=== PATIENT | female | born 1990 | race Caucasian/White ===

== ENCOUNTER 2017-11-01 08:36 | Emergency (ER) | payer OTHER ==
[2017-11-01 09:00] VITALS: BP 106/76; PULSE 122; RESP 18; TEMP 101
--- NOTE | 2017-11-01 09:27 | ED ---
General Adult HPI - General Chief complaint: ENT Stated complaint: SORE THROAT Time Seen by Provider: 11/01/17 09:06 Source: patient, RN notes reviewed Mode of arrival: ambulatory Limitations: no limitations - History of Present Illness Initial comments: 27-year-old female presents to the emergency department with a chief complaint of sore throat. Patient states that his throat is been hurting. She states that she has a history of strep throat in the past. She states that there has been a sore throat she states it does hurt to swallow. She admits to some nausea. She denies any productive cough. She was concerned due to her continued symptoms so she thought that she should be seen.Patient denies any recent shortness of breath, chest pain, back pain, abdominal pain, nausea vomiting, numbness or tingling, dysuria or hematuria, constipation or diarrhea, headaches or visual changes, or any other current symptoms. - Related Data Home Medications Medication Instructions Recorded Confirmed Ibuprofen 200 mg PO Q6H PRN 11/01/17 11/01/17 Previous Rx's Medication Instructions Recorded Amoxicillin 500 mg PO Q8H #21 capsule 11/01/17 Ibuprofen [Motrin] 600 mg PO Q6HR PRN #20 tab 11/01/17 Allergies Allergy/AdvReac Type Severity Reaction Status Date / Time iodine Allergy Unknown Verified 11/01/17 09:09 Childhood povidone-iodine Allergy Unknown Verified 11/01/17 09:09 [From Betadine] Childhood soap [From Betadine] Allergy Unknown Verified 11/01/17 09:09 Childhood Review of Systems ROS Statement: Those systems with pertinent positive or pertinent negative responses have been documented in the HPI. ROS Other: All systems not noted in ROS Statement are negative. Past Medical History Past Medical History: No Reported History History of Any Multi-Drug Resistant Organisms: None Reported Past Surgical History: Section Past Psychological History: No Psychological Hx Reported Smoking Status: Never smoker Past Alcohol Use History: Rare Past Drug Use History: None Reported General Exam - General Exam Comments Initial Comments: General exam: Alert, active, comfortable in no apparent distress Head: Normocephalic Eyes: Normal reaction of pupils, equal size, normal range of extraocular motion Ears: normal external ear canals, pink tympanic membranes with normal cone of light Nose: clear with pink turbinates Throat: Erythema with exudates with enlarged tonsils Neck: no masses, no nuchal rigidity Chest: no chest wall deformity Lungs: equal air entry with no crackles or wheeze CVS: S1 and S2 normal with no audible mumurs, regular rhythm Abdomen: no hepatosplenomegaly, normal bowel sounds, no guarding or rigidity Spine: no scoliosis or deformity Skin: no rashes Neurological: No focal deficits, tone is normal in all 4 extremities Limitations: no limitations Course Vital Signs 11/01/17 08:57 Temperature 101.0 F H Pulse Rate 122 H Respiratory 18 Rate Blood Pressure 106/76 O2 Sat by Pulse 97 Oximetry Medical Decision Making - Medical Decision Making 27-year-old female presents for what appears to be a pharyngitis. At this time we will start the patient on antibiotics. We discussed follow-up we did discuss return parameters. All questions have been answered. This time patient will be discharged home. Disposition Clinical Impression: Acute pharyngitis Disposition: HOME SELF-CARE Condition: Stable Instructions: Pharyngitis (ED) Additional Instructions: Please use medication as discussed. Please follow up with family doctor if symptoms have not improved over the next two days. Please return to the emergency room if your symptoms increase or worsen or for any other concerns. Prescriptions: Amoxicillin 500 mg PO Q8H #21 capsule Ibuprofen [Motrin] 600 mg PO Q6HR PRN #20 tab PRN Reason: Pain Referrals: Edie Jameson MD [REFERRING] - 1-2 days Time of Disposition: 09:26
== END 2017-11-01 09:28 | disposition home or self-care (01) ==
LOC: EC 08:36
DX: J02.9 Acute pharyngitis, unspecified (principal); R11.0 Nausea; Z88.8 Allergy status to other drugs, medicaments and biological substances; Z91.048 Other nonmedicinal substance allergy status
CPT/HCPCS: 99282

== ENCOUNTER 2018-01-16 16:32 | Emergency (ER) | payer OTHER ==
[2018-01-16 16:59] VITALS: BP 117/73; PULSE 100; RESP 18; TEMP 97.6
--- NOTE | 2018-01-16 17:27 | ED ---
ENT HPI - General Chief complaint: ENT Stated complaint: Sore Throat Time Seen by Provider: 01/16/18 17:18 Source: patient, RN notes reviewed Mode of arrival: ambulatory Limitations: no limitations - History of Present Illness Initial comments: This is a 27-year-old female who presents to the emergency department with chief complaint of sore throat. Patient states that she developed a sore throat yesterday. She also admits to runny nose and a "tickly cough" at night. Patient states that her 2 sons and boyfriend were recently diagnosed with strep throat. Denies any fevers or chills. Denies abdominal pain, nausea or vomiting, diarrhea or constipation. - Related Data Home Medications Medication Instructions Recorded Confirmed Ibuprofen 200 mg PO Q6H PRN 11/01/17 11/01/17 Previous Rx's Medication Instructions Recorded Amoxicillin 500 mg PO Q8H #21 capsule 11/01/17 Ibuprofen [Motrin] 600 mg PO Q6HR PRN #20 tab 11/01/17 Allergies Allergy/AdvReac Type Severity Reaction Status Date / Time iodine Allergy Unknown Verified 01/16/18 16:59 Childhood povidone-iodine Allergy Unknown Verified 01/16/18 16:59 [From Betadine] Childhood soap [From Betadine] Allergy Unknown Verified 01/16/18 16:59 Childhood Review of Systems ROS Statement: Those systems with pertinent positive or pertinent negative responses have been documented in the HPI. ROS Other: All systems not noted in ROS Statement are negative. Past Medical History Past Medical History: No Reported History History of Any Multi-Drug Resistant Organisms: None Reported Past Surgical History: Section Past Psychological History: No Psychological Hx Reported Smoking Status: Never smoker Past Alcohol Use History: Rare Past Drug Use History: None Reported General Exam - General Exam Comments Initial Comments: General: Awake and alert, well-developed; in no apparent distress. HEENT: Head atraumatic, normocephalic. Pupils are equal, round and reactive to light. Extraocular movements intact. Oropharynx moist with mild erythema. Cobblestoning noted posterior oropharynx. Unable to visualize bilateral TMs due to cerumen impaction. Neck: Supple. Normal ROM. Cardiovascular: Regular rate and rhythm. No murmurs, rubs or gallops. Chest symmetrical. Respiratory: Lungs clear to auscultation bilaterally. No wheezes, rales or rhonchi. Normal respiratory effort with no use of accessory muscles. Musculoskeletal: Normal ROM, no tenderness bilateral upper and lower extremities. Ambulating normally. Skin: [place], warm and dry without rashes or lesions. Neurological: Alert and oriented x3. CN II-XII grossly intact. Speech is fluent and answers are appropriate. No focal neuro deficits. Psychiatric: Normal mood and affect. No overt signs of depression or anxiety noted. Limitations: no limitations Course Vital Signs 01/16/18 16:58 Temperature 97.6 F Pulse Rate 100 Respiratory 18 Rate Blood Pressure 117/73 O2 Sat by Pulse 98 Oximetry Medical Decision Making - Medical Decision Making This is a 27-year-old female who presents to the emergency department with chief complaint of sore throat. Oropharynx is mildly erythematous with cobblestoning noted. No tonsillar enlargement or exudates. Patient's boyfriend and son have recently been diagnosed with strep throat. Rapid strep was negative. Patient was informed that this is sent for culture and she will be contacted if it becomes positive. Patient likely suffering from a viral upper respiratory infection. Recommended symptomatic treatment. Vital signs are stable and patient is in no acute distress. She'll be discharged home at this time. She is in agreement with plan and voices understanding. All questions answered. - Lab Data Lab Results 01/16/18 Range/Units 17:16 Group A Strep Rapid Negative (Negative) Disposition Clinical Impression: Upper respiratory infection Disposition: HOME SELF-CARE Condition: Good Instructions: Upper Respiratory Infection (ED), Pharyngitis (ED) Additional Instructions: Please follow up with primary care provider within 1-2 days. Return to emergency department if symptoms should worsen or any concerns arise. Is patient prescribed a controlled substance at d/c from ED?: No Referrals: None,Stated [Primary Care Provider] - 1-2 days Time of Disposition: 17:53
== END 2018-01-16 17:57 | disposition home or self-care (01) ==
LOC: EC 16:32
DX: J06.9 Acute upper respiratory infection, unspecified (principal); Z91.048 Other nonmedicinal substance allergy status; Z88.3 Allergy status to other anti-infective agents
CPT/HCPCS: 87081; 87430; 99283

== ENCOUNTER 2018-02-10 03:29 | Emergency (ER) | payer OTHER ==
[2018-02-10 03:39] VITALS: RESP 20; TEMP 100.4
[2018-02-10] MEDS ORDERED: ACETAMINOPHEN TAB 500 MG TAB PO STA (03:48)
[2018-02-10] MEDS ORDERED: KETOROLAC 30 MG/ML 1 ML VIAL IVP STA (03:49)
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
[2018-02-10 04:16] LABS: Basophils # (A) 0.1 k/uL (0-0.2); Basophils % (A) 1 %; Eosinophils # (A) 0.5 k/uL (0-0.7); Eosinophils % (A) 4 %; HCT 41.7 % (34.0-46.0); Lymphocytes # (A) 1.6 k/uL (1.0-4.8); Lymphocytes % (A) 12 %; MCH 29.1 pg (25.0-35.0); MCHC 33.6 g/dL (31.0-37.0); MCV 86.4 fL (80.0-100.0); Mean Platelet Volume 6.8; Monocytes # (A) 0.9 k/uL (0-1.0); Monocytes % (A) 7 %; Neutrophils # (A) 9.7 k/uL (1.3-7.7); Neutrophils % (A) 75 %; Platelet Count 340 k/uL (150-450); RBC 4.82 m/uL (3.80-5.40); RDW 14.2 % (11.5-15.5)
[2018-02-10 04:24] LABS: ALT 23 U/L (9-52); AST 18 U/L (14-36); Alkaline Phosphatase 44 U/L (38-126); Amylase 48 U/L (30-110); Anion Gap 11 mmol/L; Blood Urea Nitrogen 13 mg/dL (7-17); Calcium 9.3 mg/dL (8.4-10.2); Carbon Dioxide 26 mmol/L (22-30); Chloride 103 mmol/L (98-107); Glucose 95 mg/dL (74-99); Lipase 48 U/L (23-300); Potassium 3.8 mmol/L (3.5-5.1); Sodium 140 mmol/L (137-145); Total Bilirubin 0.7 mg/dL (0.2-1.3); Total Protein 6.8 g/dL (6.3-8.2)
[2018-02-10 04:28] LABS: Appearance,Urine Turbid (Clear); Bilirubin,Urine Negative (Negative); Blood,Urine Moderate (Negative); Color,Urine Yellow; Glucose,Urine (UA) Negative (Negative); Ketones,Urine Negative (Negative); Leukocyte Esterase,Urine Large (Negative); Mucus,Urine Occasional /hpf; Nitrite,Urine Positive (Negative); Protein,Urine 2+ (Negative); RBC,Urine 21 /hpf (0-5); Specific Gravity,Urine 1.014 (1.001-1.035); Squamous Epithelial Cell,Urine 9 /hpf (0-4); Urobilinogen,Urine <2.0 mg/dL (<2.0); WBC,Urine >182 /hpf (0-5)
[2018-02-10] MEDS ORDERED: cefTRIAXone IN SWFI 1,000 MG/10 ML SYRINGE IVP STA (04:39)
[2018-02-10 05:01] VITALS: BP 102/59; PULSE 93
--- NOTE | 2018-02-10 05:10 | CT ---
EXAMINATION TYPE: CT abdomen pelvis wo con DATE OF EXAM: 02/10/2018 COMPARISON: NONE HISTORY: Rt flank pain CT DLP: 274.60 mGycm Automated exposure control for dose reduction was used. TECHNIQUE: Helical acquisition of images was performed from the lung bases through the pelvis. FINDINGS: Lung bases are clear. There is no pleural effusion. Heart size is normal. Liver spleen pancreas gallbladder appear normal. Bile ducts are not dilated. There is no adrenal mass. Appendix appears normal. Kidneys have normal size. There is a 3 mm calculus in the interpolar left kidney. The right kidney shows mild hydronephrosis. I see no definite uretera l calculus. Uterus is anteverted. Bladder distends smoothly. There is no free fluid in the pelvis. I see no intestinal wall thickening. There are no dilated loops.THE BONY STRUCTURES ARE INTACT. IMPRESSION: MILD RIGHT-SIDED HYDRONEPHROSIS. NO URETERAL CALCULUS IDENTIFIED. SMALL NONOBSTRUCTING LEFT RENAL FLORA CULUS. NORMAL APPENDIX.
[2018-02-10] MEDS ORDERED: traMADol 50 MG STARTER PACK 3 TAB BTL PO STA (05:22)
== END 2018-02-10 05:32 | disposition home or self-care (01) ==
LOC: EC 03:29
DX: N39.0 Urinary tract infection, site not specified (principal); F17.200 Nicotine dependence, unspecified, uncomplicated; Z88.8 Allergy status to other drugs, medicaments and biological substances; Z91.048 Other nonmedicinal substance allergy status; W22.8XXA Striking against or struck by other objects, initial encounter
CPT/HCPCS: 36415; 80053; 82150; 83605; 83690; 85025; 81001; 81025; 87086; 87077; 87186; 74176; 99284; 96374; 96375; J0696; J1885

== ENCOUNTER 2018-02-23 22:30 | Emergency (ER) | payer OTHER ==
[2018-02-23] MEDS ORDERED: KETOROLAC 30 MG/ML 1 ML VIAL IM STA (23:49)
[2018-02-23] MEDS ORDERED: MORPHINE SULFATE 2 MG/ML SYRINGE IM STA (23:49)
--- NOTE | 2018-02-23 23:56 | ED ---
ENT HPI - General Chief complaint: Dental/Oral Stated complaint: Dental Pain Time Seen by Provider: 02/23/18 23:39 Source: patient Mode of arrival: ambulatory Limitations: no limitations - History of Present Illness Initial comments: Patient is a 27-year-old female presenting for left-sided tooth pain. She states it is present for the last 4 hours and states that she is going to follow up with dentist in the next day but the pain is extremely unbearable. She has tried Motrin but this is not helping. She denies any fevers or chills as well as neck swelling. . - Related Data Previous Rx's Medication Instructions Recorded Amoxic-Pot Clav 875-125Mg 1 tab PO Q12HR 10 Days #20 tablet 02/23/18 [Augmentin 875-125] HYDROcodone/APAP 10-325MG [[place] 1 tab PO Q6HR PRN 3 Days #12 tab 02/23/18 10-325] Ibuprofen [Motrin] 600 mg PO Q6HR PRN #20 tab 02/23/18 Allergies Allergy/AdvReac Type Severity Reaction Status Date / Time iodine Allergy Unknown Verified 02/23/18 23:07 Childhood povidone-iodine Allergy Unknown Verified 02/23/18 23:07 [From Betadine] Childhood soap [From Betadine] Allergy Unknown Verified 02/23/18 23:07 Childhood Review of Systems ROS Statement: Those systems with pertinent positive or pertinent negative responses have been documented in the HPI. Constitutional: Negative for chills, fatigue and fever. HENT: Negative for congestion. Positive for tooth pain Respiratory: Negative for chest tightness, shortness of breath and wheezing. Negative for cough Cardiovascular: Negative for chest pain and palpitations. Gastrointestinal: Negative for abdominal pain. Negative for abdominal distention , diarrhea, nausea and vomiting. Genitourinary: Negative for dysuria. Musculoskeletal: Negative for back pain, neck pain and neck stiffness. Skin: Negative for color change. Neurological: Negative for dizziness, speech difficulty, weakness and light- headedness. Psychiatric/Behavioral: Negative for agitation and confusion. The patient is not nervous/anxious. ROS Other: All systems not noted in ROS Statement are negative. Past Medical History Past Medical History: No Reported History History of Any Multi-Drug Resistant Organisms: None Reported Past Surgical History: Section Past Psychological History: No Psychological Hx Reported Smoking Status: Current every day smoker Past Alcohol Use History: Occasional Past Drug Use History: None Reported General Exam - General Exam Comments Initial Comments: Constitutional: Pt is oriented to person, place, and time. Pt appears well- developed and well-nourished. No distress. HENT: Head: Normocephalic and atraumatic. Mouth: Multiple caries on the upper and lower left side. No evidence of periapical abscesses Eyes: EOM are normal. Neck: Normal range of motion. Neck supple. No evidence of soft tissue infection Cardiovascular: Normal rate, regular rhythm, S1 normal, S2 normal and normal heart sounds. Exam reveals no gallop and no friction rub. No murmur heard. Pulmonary/Chest: Effort normal and breath sounds normal. No tachypnea and no bradypnea. No respiratory distress. No wheezes or rales noted. Abdominal: Soft. Bowel sounds are normal. Pt exhibits no shifting dullness, no distension, no pulsatile liver, no fluid wave, no abdominal bruit and no ascites. There is no tenderness. There is no rigidity, no rebound, no guarding, no tenderness at McBurney's point and negative Melgoza's sign. Musculoskeletal: Normal range of motion. Neurological: Pt is alert and oriented to person, place, and time. No cranial nerve deficit. Skin: Skin is warm and dry. No rash noted. Pt is not diaphoretic. No erythema. No pallor. Psychiatric: Pt has a normal mood and affect. Pt behavior is normal. Thought content normal. Limitations: no limitations Course Vital Signs 02/23/18 23:05 Temperature 98.0 F Pulse Rate 75 Respiratory 18 Rate Blood Pressure 149/82 O2 Sat by Pulse 98 Oximetry Medical Decision Making - Medical Decision Making Based on physical exam, there did not appear to be any emergent pathology and it was suspected that the patient's dental pain secondary to dental caries. There is also no evidence of. Buccal abscesses. Nonetheless, because of the significance of the caries, the patient was given prescription for Augmentin as well as by mouth medications including [place] and Motrin. Patient was advised to follow-up with dentist tomorrow. Disposition Clinical Impression: Dental caries, Toothache Disposition: HOME SELF-CARE Condition: Fair Instructions: Dental Caries (ED), Toothache (ED) Prescriptions: Amoxic-Pot Clav 875-125Mg [Augmentin 875-125] 1 tab PO Q12HR 10 Days #20 tablet HYDROcodone/APAP 10-325MG [[place] 10-325] 1 tab PO Q6HR PRN 3 Days #12 tab PRN Reason: Pain Ibuprofen [Motrin] 600 mg PO Q6HR PRN #20 tab PRN Reason: Pain Is patient prescribed a controlled substance at d/c from ED?: Yes When asked, does pt state using other controlled substances?: No If prescribed controlled substance>3 days was MAPS reviewed?: Prescribed <3 Days If opioid is for acute pain is fill amount 7 days or less?: Yes If Rx opioid, was Start Talking consent form obtained?: Yes Referrals: None,Stated [Primary Care Provider] - 1-2 days Time of Disposition: 23:56
[2018-02-24 01:06] VITALS: BP 113/78; PULSE 71; RESP 18; TEMP 98.6
== END 2018-02-24 01:07 | disposition home or self-care (01) ==
LOC: EC 22:30
DX: K02.9 Dental caries, unspecified (principal); F17.200 Nicotine dependence, unspecified, uncomplicated; Z88.8 Allergy status to other drugs, medicaments and biological substances; Z91.048 Other nonmedicinal substance allergy status
CPT/HCPCS: 99283; 96372 ×2; J1885; J2270

== ENCOUNTER 2023-09-16 08:23 | Emergency (ER) | payer OTHER ==
[2023-09-16] MEDS ORDERED: SODIUM CHLORIDE 0.9% 1,000 ML IV STA (08:59)
[2023-09-16] MEDS ORDERED: diphenhydrAMINE 50 MG/ML 1 ML VIAL IVP STA (08:59)
[2023-09-16] MEDS ORDERED: METOCLOPRAMIDE 5 MG/ML 2 ML VIAL IVP STA (08:59)
[2023-09-16] MEDS ORDERED: DEXAMETHASONE SOD PHOSPHATE 10 MG/ML 1 ML VIAL IVP STA (08:59)
[2023-09-16] MEDS ORDERED: KETOROLAC 15 MG/ML 1 ML VIAL IVP STA (08:59)
--- NOTE | 2023-09-16 09:09 | ED ---
Headache HPI - General Chief Complaint: Headache Stated Complaint: headache Time Seen by Provider: 09/16/23 08:27 Source: patient, RN notes reviewed Mode of arrival: ambulatory Limitations: no limitations - History of Present Illness Initial Comments: This is a 33-year-old female who presents to the emergency department for headaches. States the last night she developed a headache and had associated twitches throughout her entire body. She felt like she was unable to stand or walk and had difficulty forming sentences. This episode lasted for about an hour. She has a history of panic attacks, but states that this felt much different and she could not stop it on her own. The twitching, difficulty walking, and difficulty speaking have since improved, however she continues to have a headache. She has had problems with headaches over the last few months that occur on the left side of her head. She's never had this evaluated. She usually takes [id number] Ibuprofen and Tylenol which is often effective, however that was not the case this time. MD Complaint: headache - Related Data Previous Rx's Medication Instructions Recorded Amoxic-Pot Clav 875-125Mg 1 tab PO Q12HR 10 Days #20 tablet 02/23/18 [Augmentin 875-125] HYDROcodone/APAP 10-325MG [[place] 1 tab PO Q6HR PRN 3 Days #12 tab 02/23/18 10-325] Ibuprofen [Motrin] 600 mg PO Q6HR PRN #20 tab 02/23/18 Ketorolac [Toradol] 10 mg PO Q6HR PRN #15 tab 09/16/23 SUMAtriptan succinate 100 mg PO DIRECTED PRN #20 09/16/23 tablet Allergies Allergy/AdvReac Type Severity Reaction Status Date / Time iodine Allergy Unknown Verified 09/16/23 08:36 Childhood povidone-iodine Allergy Unknown Verified 09/16/23 08:36 [From Betadine] Childhood soap [From Betadine] Allergy Unknown Verified 09/16/23 08:36 Childhood Review of Systems ROS Statement: Those systems with pertinent positive or pertinent negative responses have been documented in the HPI. ROS Other: All systems not noted in ROS Statement are negative. Past Medical History Past Medical History: No Reported History History of Any Multi-Drug Resistant Organisms: None Reported Past Surgical History: Section Past Psychological History: No Psychological Hx Reported Smoking Status: Never smoker Past Alcohol Use History: Occasional Past Drug Use History: None Reported General Exam Limitations: no limitations General appearance: alert, in no apparent distress Head exam: Present: atraumatic, normocephalic, normal inspection Eye exam: Present: normal appearance, PERRL, EOMI. Absent: scleral icterus, conjunctival injection, periorbital swelling Respiratory exam: Present: normal lung sounds bilaterally. Absent: respiratory distress, wheezes, rales, rhonchi, stridor Cardiovascular Exam: Present: regular rate, normal rhythm, normal heart sounds. Absent: systolic murmur, diastolic murmur, rubs, gallop, clicks Neurological exam: Present: alert, oriented X3, CN II-XII intact Psychiatric exam: Present: normal affect, normal mood Skin exam: Present: warm, dry, intact, normal color. Absent: rash Course Vital Signs 09/16/23 09/16/23 09/16/23 08:32 11:02 12:45 Temperature 97.8 F 98.1 F 98.0 F Pulse Rate 86 86 58 L Respiratory 20 18 16 Rate Blood Pressure 121/68 132/72 92/68 O2 Sat by Pulse 98 99 97 Oximetry Medical Decision Making - Medical Decision Making This is a 33-year-old female who presents to the emergency department for a headache. Was pt. sent in by a medical professional or institution? @ -No Did you speak to anyone other than the patient for history? @ -No Did you review nursing and triage notes? @ -Yes, and I agree, it is accurate with regards to the patient's symptoms. Were old charts reviewed? @ -No Differential Diagnosis? @ -Differential Headache: Migraine, tension, cluster, carbon monoxide, central venous thrombosis, pension karma temporal arteritis, acute closure glaucoma, intercranial hemorrhage, mastoiditis, sinusitis, head injury, this is not meant to be an all-inclusive list. EKG interpreted by me (3pts min.)? @ -Not obtained X-rays interpreted by me (1pt min.)? @ -Not obtained CT interpreted by me (1pt min.)? @ -CT scan of the brain obtained. My interpretation identifies no evidence of an acute intracranial hemorrhage or mass effect. U/S interpreted by me (1pt. min.)? @ -Not obtained What testing was considered but not performed? (CT, X-rays, U/S, labs)? Why? @ -None What meds were considered but not given? Why? @ -None Did you discuss the management of the patient with other professionals? @ -No Did you reconcile home meds? @ -No Was smoking cessation discussed for >3mins.? @ -I discussed smoking cessation for greater than 3 minutes. The risk of smoki ng were discussed with the patient including but not limited to risks of cancer, stroke, coronary artery disease and COPD. Also discussed with patient were multiple methods of quitting smoking. Lastly we discussed the financial cost of smoking. Was critical care preformed (if so, how long)? @ -No Were there social determinants of health that impacted care today? How? (Homelessness, low income, unemployed, alcoholism, drug addiction, trans portation, low edu. Level, literacy, decrease access to med. care, [facility], rehab)? @ -No Was there de-escalation of care discussed even if they declined? (Discuss DNR or withdrawal of care, Hospice)? @ -No What co-morbidities impacted this encounter? (DM, HTN, Smoking, COPD, CAD, Cancer, CVA, Hep., AIDS, mental health diagnosis, sleep apnea, morbid obesity)? @ -None Was patient admitted / discharged? @ -Discharged. Lab work obtained and found to be unremarkable. CT scan of the brain obtained revealing no acute process. Patient given a migraine cocktail consisting of IV fluids, Toradol, Decadron, Reglan, and Benadryl with improvement in symptoms and at that point the patient felt stable for discharge home. Advised she become established with a primary care provider for ongoing medical management, and if the headaches become a persistent issue, she may need to be evaluated by a neurologist. Prescription for Toradol and sumatriptan provided with dosing instructions reviewed for any additional headaches. Patient discharged home in stable condition. Undiagnosed new problem with uncertain prognosis? @ -None Drug Therapy requiring intensive monitoring for toxicity (Heparin, Nitro, Insulin, Cardizem)? @ -None Were any procedures done? @ -None Diagnosis/symptom? @ -Headache, spasms Acute, or Chronic, or Acute on Chronic? @ -Acute Uncomplicated (without systemic symptoms) or Complicated (systemic symptoms)? @ -Uncomplicated Side effects of treatment? @ -None Exacerbation, Progression, or Severe Exacerbation] @ -Not applicable Poses a threat to life or bodily function? @ -No Return precautions reviewed in depth, the patient is instructed to return to the emergency department with any new, worsening, or concerning symptoms. Patient verbalized understanding. This case was discussed in detail with the attending ED physician, Dr. George. Presentation, findings, and treatment plan discussed in detail as well. - Lab Data Result diagrams: 09/16/23 09:04 09/16/23 09:04 Lab Results 09/16/23 09/16/23 09/16/23 Range/Units 09:04 09:04 09:04 WBC 7.3 (3.8-10.6) k/uL RBC 4.79 (3.80-5.40) m/uL Hgb 14.8 (11.4-16.0) gm/dL Hct 43.6 (34.0-46.0) % MCV 91.1 (80.0-100.0) fL MCH 30.9 (25.0-35.0) pg MCHC 33.9 (31.0-37.0) g/dL RDW 12.8 (11.5-15.5) % Plt Count 298 (150-450) k/uL MPV 7.2 Neutrophils % 60 % Lymphocytes % 26 % Monocytes % 6 % Eosinophils % 5 % Basophils % 2 % Neutrophils # 4.4 (1.3-7.7) k/uL Lymphocytes # 1.9 (1.0-4.8) k/uL Monocytes # 0.4 (0-1.0) k/uL Eosinophils # 0.3 (0-0.7) k/uL Basophils # 0.1 (0-0.2) k/uL Sodium 140 (137-145) mmol/L Potassium 5.0 (3.5-5.1) mmol/L Chloride 108 H (98-107) mmol/L Carbon Dioxide 25 (22-30) mmol/L Anion Gap 7 mmol/L BUN 14 (7-17) mg/dL Creatinine 0.64 (0.52-1.04) mg/dL Est GFR (CKD-EPI)AfAm >90 (>60 ml/min/1.73 sqM) Est GFR (CKD-EPI)NonAf >90 (>60 ml/min/1.73 sqM) Glucose 94 (74-99) mg/dL Plasma Lactic Acid Duc 1.0 (0.7-2.0) mmol/L Calcium 9.4 (8.4-10.2) mg/dL Magnesium 2.1 (1.6-2.3) mg/dL Total Bilirubin 0.9 (0.2-1.3) mg/dL AST 24 (14-36) U/L ALT 12 (4-34) U/L Alkaline Phosphatase 46 (38-126) U/L Total Protein 7.2 (6.3-8.2) g/dL Albumin 4.1 (3.5-5.0) g/dL HCG, Qual Not Detected - Radiology Data Radiology results: report reviewed, image reviewed Disposition Clinical Impression: Headache, Nicotine dependence, Spasm Disposition: HOME SELF-CARE Instructions (If sedation given, give patient instructions): Acute Headache (ED) Additional Instructions: Return to the emergency department with any new, worsening, or concerning symptoms. Take the Toradol with Tylenol as needed for pain relief. If you choose to take the Toradol, do not take any other anti-inflammatories such as ibuprofen, take one or the other. If you develop another headache, you can try taking a sumatriptan tablet at the onset of symptoms. If symptoms persist at the 2 hour odessa, you can take another tablet, not to exceed 2 doses in 24 hours. Try to become established with a primary care provider for ongoing medical care. Prescriptions: SUMAtriptan succinate 100 mg PO DIRECTED PRN #20 tablet PRN Reason: Migraine Headache Ketorolac [Toradol] 10 mg PO Q6HR PRN #15 tab PRN Reason: Pain Is patient prescribed a controlled substance at d/c from ED?: No Referrals: None,Stated [Primary Care Provider] - 1-2 days Forms: Area PCPs Time of Disposition: 12:24
[2023-09-16 09:22] LABS: Basophils # (A) 0.1 k/uL (0-0.2); Basophils % (A) 2 %; Eosinophils # (A) 0.3 k/uL (0-0.7); Eosinophils % (A) 5 %; HCT 43.6 % (34.0-46.0); HGB 14.8 gm/dL (11.4-16.0); Lymphocytes # (A) 1.9 k/uL (1.0-4.8); Lymphocytes % (A) 26 %; MCH 30.9 pg (25.0-35.0); MCHC 33.9 g/dL (31.0-37.0); MCV 91.1 fL (80.0-100.0); Mean Platelet Volume 7.2; Monocytes # (A) 0.4 k/uL (0-1.0); Monocytes % (A) 6 %; Neutrophils # (A) 4.4 k/uL (1.3-7.7); Neutrophils % (A) 60 %; Platelet Count 298 k/uL (150-450); RBC 4.79 m/uL (3.80-5.40); RDW 12.8 % (11.5-15.5); WBC 7.3 k/uL (3.8-10.6)
[2023-09-16 09:33] LABS: ALT 12 U/L (4-34); African American GFR (CKD) >90 (>60 ml/min/1.73 sqM); Albumin 4.1 g/dL (3.5-5.0); Anion Gap 7 mmol/L; Blood Urea Nitrogen 14 mg/dL (7-17); Calcium 9.4 mg/dL (8.4-10.2); Carbon Dioxide 25 mmol/L (22-30); Chloride 108 mmol/L (98-107); Glucose 94 mg/dL (74-99); HCG,Qualitative Serum Not Detected; Magnesium 2.1 mg/dL (1.6-2.3); Non-African American GFR(CKD) >90 (>60 ml/min/1.73 sqM); Sodium 140 mmol/L (137-145); Total Bilirubin 0.9 mg/dL (0.2-1.3); Total Protein 7.2 g/dL (6.3-8.2)
[2023-09-16 09:42] LABS: AST 24 U/L (14-36); Alkaline Phosphatase 46 U/L (38-126)
--- NOTE | 2023-09-16 09:59 | CT ---
EXAMINATION TYPE: CT brain wo con DATE OF EXAM: 09/16/2023 COMPARISON: None HISTORY: headacache CT DLP: 1020.4 mGycm. Automated Exposure Control for Dose Reduction was Utilized. TECHNIQUE: CT scan of the head is performed without contrast. Findings: The ventricles, basal cisterns and sulci over the convexities are within normal limits and there is n o mass effect or shift of midline structures. No abnormal density is seen throughout the brain parenchyma and there is no acute intra or extra-axia l hemorrhage. The posterior fossa including the brainstem, fourth ventricle and cerebellar pontine angles appear no rmal. Intraorbital contents appear normal and symmetric. Visualized paranasal sinuses and mastoid air cells are well aerated. The calvarium is intact. IMPRESSION: No significant abnormality seen. There is no acute bleed or mass effect.
[2023-09-16] MEDS ORDERED: ONDANSETRON 4 MG/2 ML VIAL IM STA (10:51)
[2023-09-16] MEDS ORDERED: LORazepam 2 MG/ML INJ IM STA (10:51)
[2023-09-16] MEDS ORDERED: ONDANSETRON 4 MG ODT STARTER PACK 2 TAB BTL PO STA (12:25)
[2023-09-16 13:04] VITALS: BP 92/68; PULSE 58; RESP 16; TEMP 98
== END 2023-09-16 12:45 | disposition home or self-care (01) ==
LOC: EC 08:23
DX: R51.9 Headache, unspecified (principal); R25.2 Cramp and spasm; F17.200 Nicotine dependence, unspecified, uncomplicated; Z91.041 Radiographic dye allergy status; Z88.8 Allergy status to other drugs, medicaments and biological substances
CPT/HCPCS: 36415; 80053; 83605; 83735; 85025; 84703; 70450; 99284; 96374; 96375 ×3; 96361; 99406; 96372 ×2; J2060; J1200; J1100; J2765; J2405; J1885; S0119